=== PATIENT | male | born 1985 | race Caucasian/White ===

== ENCOUNTER 2020-12-20 15:02 | Emergency (ER) | payer MEDICAID, SELFPAY ==
--- NOTE | ~2020-12-20 | XR_ITS ---
EXAMINATION: XR HAND, LEFT CLINICAL INFORMATION: From injury COMPARISON: None TECHNIQUE: PA, lateral, and oblique views of the left hand. FINDINGS: There is no evidence of acute fracture or dislocation of the left hand or wrist. Joint spaces are maintained. No destructive bony lesions. There appears to be some soft tissue swelling seen about the second finger. XR/XR hand LT 2V IMPRESSION: No significant bony abnormality of the left hand or wrist.
[2020-12-20 15:12] VITALS: BP 138/87; PULSE 98; RESP 18; TEMP 36.7; O2SAT 95; BMI 26.6
--- NOTE | 2020-12-20 16:10 | ED.EXTPRO ---
HPI - Extremity Problem General Chief complaint: Extremity Injury, Upper Stated complaint: thumb infection Time Seen by Provider: 12/20/20 16:09 Source: patient Mode of arrival: ambulatory Limitations: no limitations History of Present Illness HPI Narrative: 35-year-old male here today for complaints left thumb pain. Patient was working on the car and as he was drilling, the drill slipped and went into his left thumb lateral to his nail. No puncture through. Bleeding under control. Last tetanus vaccine over 5 years ago. Patient is not diabetic. Patient denies any other symptoms. MD Complaint: extremity pain Onset (ago): minute(s) Pain Consistency: constant Location: left and upper extremity Quality: burning and aching Related Data Previous Rx's Medication Instructions Recorded cephalexin 500 mg capsule 500 mg PO QID 7 Days #28 cap 12/20/20 ibuprofen 600 mg tablet 600 mg PO Q8H PRN #20 tab 12/20/20 oxycodone 5 mg tablet 5 mg PO Q4-6H PRN #5 tab 12/20/20 Allergies Allergy/AdvReac Type Severity Reaction Status Date / Time No Known Allergies Allergy Verified 12/20/20 15:18 Review of Systems Review of Systems: Constitutional : No Weight loss, No Fever, No Chills, No Night Sweats, No Fatigue, No Malaise ENT/Mouth : No Hearing loss, No Ear Pain, No Nasal Congestion, No Sinus Pain, No Hoarseness, No sore throat, No Rhinorrhea, No Swallowing Difficulty Eyes: No Eye Pain, No Swelling, No Redness, No Foreign Body, No Discharge, No Vision Changes Cardiovascular : No Chest Pain, No SOB, No Dyspnea on Exertion, No Orthopnea, No Edema, No Palpitations Respiratory : No Cough, No Sputum, No Wheezing, No Smoke Exposure, No Dyspnea Gastrointestinal : No Nausea, No Vomiting, No Diarrhea, No Constipation, No abdominal Pain, No Hematochezia, No Melena Genitourinary : no irregular bleeding, No Dysuria, No Urinary Frequency, No Hematuria, No Urinary Incontinence, No Urgency, No Flank Pain, No Urinary Flow Changes, No Hesitancy Musculoskeletal : No joint pain, No Myalgias, No Joint Swelling, left thumb injury Skin : No Skin Lesions, No rash Neuro : No Weakness, No Numbness, No Paresthesias, No Loss of Consciousness, No Dizziness, No Headache Psych : No Anxiety/Panic, No Depression, No SI/HI/AH/VH, No Social Issues, Heme/Lymph: No Bruising, No Bleeding,No Lymphadenopathy Endocrine : No Polyuria, No Polydipsia, No Temperature Intolerance Yes all other systems are reviewed and are negative [facility] Past Medical History Medical History (Updated 12/20/20 @ 17:16 by Lola Quintana, [facility]) No known health problems Social History Social History Advance Directives: No Advance Directives Information Provided: No Physical Exam Vital Signs: Vital Signs: Last Vital Signs Temp 98.1 F 12/20/20 15:12 Pulse 98 12/20/20 15:12 Resp 18 12/20/20 15:12 BP 138/87 12/20/20 15:12 Pulse Ox 95 12/20/20 15:12 Body Mass Index 26.6 Course Course Course Narrative: 35-year-old male here today for left thumb injury. Patient was drooling when the drill slipped and went to his left thumb outer part of the nail. The drill did not go through. Mild bleeding and swelling. Mild puncture to the nail laterally. Intact nail bed. Will do x-ray if that is negative will send patient home with antibiotics. First dose will be given today. Tetanus vaccine updated. Reevaluation(s) Reevaluation #1: X-ray negative for any acute processes. We will be sending patient home with antibiotics. Patient was instructed to observe area for increased swelling, increased redness or drainage. He was instructed to finish all of his antibiotics. He is agreeable to plan of care and verbalizes understanding of instructions. He was given the opportunity to ask questions and all questions answered. Discharge Plan Discharge Clinical Impression: Finger wound, simple, open Qualifiers: Encounter type: initial encounter Qualified Code(s): S61.209A - Unspecified open wound of unspecified finger without damage to nail, initial encounter Patient Disposition: Home, Self-Care Instructions: Puncture Wound (ED) Additional Instructions: You were seen here today after puncturing your left thumb with a drill. You were given pain medication, antibiotic and tetanus vaccine. Your x-ray shows no acute findings. Please monitor your finger for infection. Please make sure that you finish your antibiotics. Prescriptions: New oxycodone 5 mg tablet 5 mg PO Q4-6H PRN (Reason: pain) Qty: 5 RF: 0 cephalexin 500 mg capsule 500 mg PO QID 7 Days Qty: 28 RF: 0 ibuprofen 600 mg tablet 600 mg PO Q8H PRN (Reason: pain) Qty: 20 RF: 0 Stand Alone Forms: Work/School Release Interventions: ED Discharge Assessment Last Done: 12/20/20 17:30 Discharge Date/Time: 12/20/20 17:31
[2020-12-20] MEDS: oxyCODONE HCl Immed Release 5 MG TABLET PO (16:24)
[2020-12-20] MEDS: cephALEXin 500 MG CAPSULE PO (17:27)
[2020-12-20] MEDS: Diphth,Pertus(ACell),Tet Adult 0.5 ML SYRINGE IM (17:27)
== END 2020-12-20 17:31 | disposition home or self-care (01) ==
PROVIDERS: Emergency Provider Emergency Medicine
DX: S61.132A Puncture wound without foreign body of left thumb with damage to nail, initial encounter (principal); W29.8XXA Contact with other powered hand tools and household machinery, initial encounter; M79.645 Pain in left finger(s); Y93.89 Activity, other specified; Y92.9 Unspecified place or not applicable; Y99.9 Unspecified external cause status
CPT/HCPCS: 73120; 90471; 90715; 99283; 99284

== ENCOUNTER 2021-05-17 13:49 | Emergency (ER) | payer OTHER, SELFPAY ==
[2021-05-17 14:01] VITALS: BP 139/79; PULSE 93; RESP 16; TEMP 37.2; O2SAT 96; BMI 26.6
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
== END 2021-05-17 15:43 | disposition home or self-care (01) ==
PROVIDERS: Emergency Provider Emergency Medicine Emergency Medical Services
DX: S21.251A Open bite of right back wall of thorax without penetration into thoracic cavity, initial encounter (principal); Y04.1XXA Assault by human bite, initial encounter; Y93.9 Activity, unspecified; Y92.9 Unspecified place or not applicable; Y99.9 Unspecified external cause status
CPT/HCPCS: 99283

== ENCOUNTER 2021-05-21 14:48 | Outpatient (RCR) | payer OTHER, SELFPAY ==
[2021-05-21 16:29] LABS: Basophils Percent Auto 0.1 % (0-2); Eosinophils Percent Auto 0.5 % (0-4); Hematocrit 45.4 % (42.0-52.0); Hemoglobin 15.2 g/dl (14.0-18.0); Imm Gran Abs Auto 0.03 X10*3/uL (0.00-0.03); Imm Gran Pct Auto 0.4 % (0.0-0.4); Lymphocytes Absolute Auto 2.2 X10*3/uL (1.2-4.9); Lymphocytes Percent Auto 26.7 % (20-40); MANUAL DIFF FLAG NO; Mean Corpuscular HGB Conc 33.5 g/dl (31.0-36.0); Mean Corpuscular Hemoglobin 28.4 pg (27.0-33.0); Mean Corpuscular Volume 84.9 fL (80.0-98.0); Monocytes Absolute Auto 0.5 X10*3/uL (0.1-1.2); Monocytes Percent Auto 6.7 % (2-11); Neutrophils Absolute Auto 5.3 x10*3/uL (2.0-8.3); Neutrophils Percent Auto 65.6 % (45-73); Platelet Count 315 X10*3/uL (160-400); Red Blood Count 5.35 X10*6/uL (4.60-5.80); Red Cell Distribution Width 12.7 % (11.0-16.0); White Blood Count 8.1 X10*3/uL (4.8-10.8)
[2021-05-21 16:48] LABS: Alanine Aminotransferase 33 U/L (0-40); Albumin Level 4.5 g/dL (3.5-5.0); Alkaline Phosphatase 79 U/L (39-117); Anion Gap 12 (12-20); Aspartate Amino Transferase 19 U/L (5-37); Bilirubin Total 0.4 mg/dL (0.0-1.0); Blood Urea Nitrogen 15 mg/dL (9-16); C Reactive Protein 0.05 mg/dL (< or = 0.50); Calcium 10.3 mg/dL (8.4-10.2); Carbon Dioxide 28 mmol/L (22-29); Chloride 104 mmol/L (96-108); Estimated Glomerular Filt Rate > 60; Glucose Random 85 mg/dL (60-115); Potassium 4.9 mmol/L (3.3-5.1); Sodium 139 mmol/L (135-145); Total Protein 7.8 g/dL (6.5-8.0)
[2021-05-21 17:00] LABS: Erythrocyte Sedimentation Rate 2 MM/HR (0-15)
[2021-05-22 07:52] LABS: HBS Num1 > 1000.00 mIU/mL (0-7.99); HBc Num1 0.07 S/CO (0.00-0.79); HBsAGNum1 0.21 S/CO (0.00-0.99); HIV AB/AG Nonreactive (Nonreactive); HIV Num 1 0.07 S/CO (0.00-0.99); Hepatitis B Core Antibody Nonreactive (Nonreactive); Hepatitis B Surface Antigen Negative (Negative); ~HepC Num1 0.14 S/CO (0.00-0.79); ~Hepatitis B Surface Antibody REACTIVE (Nonreactive); ~Hepatitis C Antibody Nonreactive (Nonreactive)
[2021-05-26 13:46] LABS: Hepatitis B Viral DNA Qn - cp <1.00 NOT DETECTED Log IU/mL (NOT DETECTED); Hepatitis B Viral DNA Qn-IU/mL <10 NOT DETECTED IU/mL (NOT DETECTED)
== END 2021-05-29 15:12 | disposition home or self-care (01) ==
LOC: HO.WCC 14:48
PROVIDERS: Visit Provider Physician Assistant
DX: S21.251A Open bite of right back wall of thorax without penetration into thoracic cavity, initial encounter (principal); Y04.1XXA Assault by human bite, initial encounter; F17.210 Nicotine dependence, cigarettes, uncomplicated
CPT/HCPCS: 36415; 80053; 85025; 85652; 86140; 86704; 86706; 86803; 87340; 87389; 87517; 99212; 99213